=== PATIENT | male | born 1945 | race Two or more races ===

== ENCOUNTER 2020-02-08 08:35 | Outpatient (CLI) | payer OTHER | END 2020-02-08 08:40 | disposition home or self-care (01) | LOC: RAD 08:35 | PROVIDERS: ATTEND Specialist | DX: S32.000A Wedge compression fracture of unspecified lumbar vertebra, initial encounter for closed fracture (principal); J45.998 Other asthma ==

== ENCOUNTER → 2020-09-25 | Outpatient (CLI) | payer OTHER | END | disposition home or self-care (01) | LOC: TOM 09:53 | PROVIDERS: ATTEND Specialist | DX: Q33.8 Other congenital malformations of lung (principal) ==

== ENCOUNTER 2021-08-06 09:27 | Outpatient (CLI) | payer OTHER | END 2021-08-06 09:30 | disposition home or self-care (01) | LOC: LAB 09:27 | PROVIDERS: ATTEND Specialist | DX: E03.9 Hypothyroidism, unspecified (principal); N39.9 Disorder of urinary system, unspecified; D40.0 Neoplasm of uncertain behavior of prostate; E78.2 Mixed hyperlipidemia ==

== ENCOUNTER 2021-08-12 09:16 | Outpatient (CLI) | payer OTHER | END 2021-08-12 09:19 | disposition home or self-care (01) | LOC: TOM 09:16 | PROVIDERS: ATTEND Internal Medicine Pulmonary Disease | DX: J84.113 Idiopathic non-specific interstitial pneumonitis (principal) ==

== ENCOUNTER 2021-10-09 09:30 | Outpatient (CLI) | payer OTHER | END 2021-10-09 09:31 | disposition home or self-care (01) | LOC: LAB 09:30 | PROVIDERS: ATTEND Specialist | DX: E03.9 Hypothyroidism, unspecified (principal); E11.65 Type 2 diabetes mellitus with hyperglycemia; E78.2 Mixed hyperlipidemia; Z12.11 Encounter for screening for malignant neoplasm of colon; D64.9 Anemia, unspecified ==

== ENCOUNTER 2021-10-10 11:05 | Outpatient (CLI) | payer OTHER | END 2021-10-10 12:50 | disposition home or self-care (01) | LOC: LAB 11:05 | PROVIDERS: ATTEND Specialist | DX: E03.9 Hypothyroidism, unspecified (principal); E11.21 Type 2 diabetes mellitus with diabetic nephropathy; E78.2 Mixed hyperlipidemia; E11.65 Type 2 diabetes mellitus with hyperglycemia; Z12.11 Encounter for screening for malignant neoplasm of colon; D64.9 Anemia, unspecified ==

== ENCOUNTER 2021-10-12 07:22 | Outpatient (CLI) | payer OTHER | END 2021-10-12 07:29 | disposition home or self-care (01) | LOC: TOM 07:22 | PROVIDERS: ATTEND Internal Medicine Gastroenterology | DX: K30 Functional dyspepsia (principal); R10.32 Left lower quadrant pain ==

== ENCOUNTER 2022-07-06 09:22 | Outpatient (CLI) | payer OTHER | END 2022-07-06 09:23 | disposition home or self-care (01) | LOC: LAB 09:22 | PROVIDERS: ATTEND Radiology Diagnostic Radiology | DX: J47.9 Bronchiectasis, uncomplicated (principal) ==

== ENCOUNTER 2022-07-27 08:01 | Outpatient (CLI) | payer OTHER | END 2022-07-27 08:06 | disposition home or self-care (01) | LOC: TOM 08:01 | PROVIDERS: ATTEND Specialist | DX: J47.9 Bronchiectasis, uncomplicated (principal); J94.9 Pleural condition, unspecified | CPT/HCPCS: 71260; Q9965 ==

== ENCOUNTER 2022-08-18 07:58 | Outpatient (CLI) | payer OTHER | END 2022-08-18 12:21 | disposition home or self-care (01) | LOC: LAB 07:58 | PROVIDERS: ATTEND Internal Medicine Gastroenterology | DX: K30 Functional dyspepsia (principal); Z86.010 Personal history of colon polyps; K57.30 Diverticulosis of large intestine without perforation or abscess without bleeding; E11.21 Type 2 diabetes mellitus with diabetic nephropathy; E11.69 Type 2 diabetes mellitus with other specified complication; N39.9 Disorder of urinary system, unspecified; Z13.220 Encounter for screening for lipoid disorders; E03.8 Other specified hypothyroidism; D64.89 Other specified anemias ==

== ENCOUNTER 2022-11-15 08:24 | Outpatient (CLI) | payer OTHER | END 2022-11-15 08:52 | disposition home or self-care (01) | LOC: LAB 08:24 | PROVIDERS: ATTEND Specialist | DX: E03.8 Other specified hypothyroidism (principal); Z13.220 Encounter for screening for lipoid disorders; D64.89 Other specified anemias; E11.69 Type 2 diabetes mellitus with other specified complication; M00.89 Polyarthritis due to other bacteria; N39.9 Disorder of urinary system, unspecified; E11.21 Type 2 diabetes mellitus with diabetic nephropathy; Z12.5 Encounter for screening for malignant neoplasm of prostate; J84.10 Pulmonary fibrosis, unspecified ==

== ENCOUNTER 2023-02-28 07:58 | Outpatient (CLI) | payer OTHER | END 2023-02-28 08:00 | disposition home or self-care (01) | LOC: LAB 07:58 | PROVIDERS: ATTEND Specialist | DX: D64.89 Other specified anemias (principal); E03.8 Other specified hypothyroidism; Z13.220 Encounter for screening for lipoid disorders; E11.69 Type 2 diabetes mellitus with other specified complication; M00.80 Arthritis due to other bacteria, unspecified joint; N39.9 Disorder of urinary system, unspecified ==

== ENCOUNTER 2023-07-11 08:11 | Outpatient (CLI) | payer OTHER ==
[2023-07-11 08:57] LABS: URINE APPEARANCE Clear; URINE BILIRRUBIN Negative (NEGATIVE); URINE BLOOD NHT; URINE COLOR Yellow; URINE GLUCOSE Negative (NEGATIVE); URINE LEUKOCYTE Negative; URINE NITRATE Negative; URINE PROTEIN 30 (NEGATIVE)
[2023-07-11 09:02] LABS: URINE EPITHELIAL CELLS 1.6 uL (0.0-38.8); URINE WBC 2.1 uL (0.0-23.2)
[2023-07-11 09:18] LABS: HEMATOCRIT 37.9 % (39.0-48.0); HEMOGLOBIN 12.9 g/dL (13-16.00); MEAN CELL VOLUME 89.7 fL (80.0-100.00); MEAN CORPUSCULAR HEMOGLOBIN 30.6 pg (27.00-32.0); MEAN CORPUSCULAR HGB CONC 34.1 g/dl (32.0-36.0); PLATELET COUNT 209 K/uL (150-450); RED BLOOD COUNT 4.23 M/uL (4.00-6.00); RED CELL DISTRIBUTION WIDTH 13.2 % (11.5-14.5)
[2023-07-11 09:41] LABS: URINE BACTERIA 3.7 uL (0.0-1933)
[2023-07-11 09:56] LABS: ALBUMIN 4.1 gm/dL (3.4-5.0); BILIRUBIN TOTAL 0.74 mg/dL (0.3-1.2); CALCIUM 9.7 mg/dL (8.5-10.1); GFR 71.9; GLOBULINA 3.8 G/DL (2.4-3.5); POTASSIUM 4.46 mEq/L (3.5-5.1); PROSTATIC SPECIFIC ANTIGEN 3.72 NG/ML (0.010-4.00); T4 TOTAL 10.5 UG/DL (4.5-12.1); TOTAL PROTEIN 7.9 gm/dL (6.4-8.2)
[2023-07-11 10:45] LABS: TSH 3.97 uIU/mL (0.358-3.74)
== END 2023-07-11 08:21 | disposition home or self-care (01) ==
LOC: LAB 08:11
PROVIDERS: ATTEND Specialist
DX: K29.30 Chronic superficial gastritis without bleeding (principal); K57.30 Diverticulosis of large intestine without perforation or abscess without bleeding; R63.6 Underweight; R10.32 Left lower quadrant pain; K59.00 Constipation, unspecified

== ENCOUNTER 2023-07-11 08:48 | Outpatient (CLI) | payer OTHER | END 2023-07-11 08:53 | disposition home or self-care (01) | LOC: RAD 08:48 | PROVIDERS: ATTEND Internal Medicine Sports Medicine | DX: R63.4 Abnormal weight loss (principal); R04.2 Hemoptysis ==

== ENCOUNTER 2023-09-14 11:41 | Outpatient (CLI) | payer OTHER ==
[2023-09-14 12:24] LABS: PH,URINE 6.5 (5.0-8.0); URINE APPEARANCE Clear; URINE BILIRRUBIN Negative (NEGATIVE); URINE COLOR Dark Yellow; URINE GLUCOSE Negative (NEGATIVE); URINE LEUKOCYTE Trace; URINE NITRATE Negative; URINE PROTEIN 30 (NEGATIVE)
[2023-09-14 12:29] LABS: URINE BACTERIA 15.1 uL (0.0-1933); URINE EPITHELIAL CELLS 5.5 uL (0.0-38.8); URINE RBC 20.4 uL (0.0-20.8); URINE WBC 4.9 uL (0.0-23.2)
[2023-09-14 12:35] LABS: HEMATOCRIT 40.6 % (39.0-48.0); HEMOGLOBIN 13.7 g/dL (13-16.00); MEAN CELL VOLUME 89.5 fL (80.0-100.00); MEAN CORPUSCULAR HEMOGLOBIN 30.1 pg (27.00-32.0); MEAN CORPUSCULAR HGB CONC 33.7 g/dl (32.0-36.0); PLATELET COUNT 198 K/uL (150-450); RED BLOOD COUNT 4.54 M/uL (4.00-6.00); RED CELL DISTRIBUTION WIDTH 13.2 % (11.5-14.5)
[2023-09-14 12:39] LABS: URINE BLOOD TRACES
[2023-09-14 13:02] LABS: ALBUMIN 4.5 gm/dL (3.4-5.0); ALKALINE PHOSPHATASE 66 U/L (50-136); ALT/SGPT 13 U/L (12-78); ANION GAP 8 (10.0-20.0); AST/SGOT 13 U/L (15-37); BILIRUBIN TOTAL 0.84 mg/dL (0.3-1.2); BLOOD UREA NITROGEN 15 mg/dL (7-18); BUN CREA RATIO 14 (7.0-25.0); CARBON DIOXIDE 35 mEq/L (21-32); CHLORIDE 98 mmol/L (98-107); CHOL HDL RATIO 2.2 (0-5.0); CHOLESTEROL 224 mg/dL (0-200); CREATININE SERUM 1.07 mg/dL (0.70-1.30); GFR 66.49; GLOBULINA 4.2 G/DL (2.4-3.5); GLUCOSE FASTING 123 mg/dL (65-100); HDL 103 mg/dl (40-60); LDL 100 mg/dl (0-130); OSMOLALITY SERUM 276 MOSM/KG (275-295); POTASSIUM 4.19 mEq/L (3.5-5.1); SODIUM 137 mmol/L (136-145); T4 FREE 1.24 NG/ML (0.76-1.46); TOTAL PROTEIN 8.7 gm/dL (6.4-8.2); TRIGLYCERIDES 103 mg/dL (0-150); VLDL 20 (0-39)
[2023-09-14 13:03] LABS: C-REACTIVE PROTEIN < 0.29 MG/DL (0.00-0.29)
[2023-09-16 06:09] LABS: % FREE PSA 6.9 % (.); free psa 0.36 ng/mL; total psa 5.2 ng/mL (0.0-4.0)
== END 2023-09-14 11:42 | disposition home or self-care (01) ==
LOC: LAB 11:41
PROVIDERS: ATTEND Specialist
DX: Z12.5 Encounter for screening for malignant neoplasm of prostate (principal); E11.69 Type 2 diabetes mellitus with other specified complication; D64.89 Other specified anemias; E11.21 Type 2 diabetes mellitus with diabetic nephropathy; N39.9 Disorder of urinary system, unspecified; Z13.220 Encounter for screening for lipoid disorders

== ENCOUNTER → 2024-02-17 07:08 | Outpatient (CLI) | payer OTHER ==
[2024-02-17 07:44] LABS: HEMATOCRIT 38.9 % (39.0-48.0); HEMOGLOBIN 13.2 g/dL (13-16.00); MEAN CELL VOLUME 91.6 fL (80.0-100.00); MEAN CORPUSCULAR HEMOGLOBIN 31.1 pg (27.00-32.0); MEAN CORPUSCULAR HGB CONC 33.9 g/dl (32.0-36.0); PLATELET COUNT 250 K/uL (150-450); RED BLOOD COUNT 4.25 M/uL (4.00-6.00); RED CELL DISTRIBUTION WIDTH 13.1 % (11.5-14.5)
[2024-02-17 08:45] LABS: BILIRUBIN TOTAL 0.57 mg/dL (0.3-1.2); CALCIUM 9.5 mg/dL (8.5-10.1); CREATININE SERUM 0.86 mg/dL (0.70-1.30); GFR 85.35; GLOBULINA 3.9 G/DL (2.4-3.5); POTASSIUM 3.97 mEq/L (3.5-5.1); TOTAL PROTEIN 7.9 gm/dL (6.4-8.2); TSH 3.9 uIU/mL (0.358-3.74)
== END | disposition home or self-care (01) ==
LOC: LAB 07:08
PROVIDERS: ATTEND Internal Medicine Gastroenterology
DX: R63.4 Abnormal weight loss (principal); K57.30 Diverticulosis of large intestine without perforation or abscess without bleeding

== ENCOUNTER 2024-02-20 09:59 | Outpatient (CLI) | payer OTHER ==
[2024-02-20 11:06] LABS: CALCIUM 9.4 mg/dL (8.5-10.1); CREATININE SERUM 0.85 mg/dL (0.70-1.30); GFR 86.51; POTASSIUM 3.75 mEq/L (3.5-5.1)
== END 2024-02-20 10:03 | disposition home or self-care (01) ==
LOC: LAB 09:59
PROVIDERS: ATTEND Internal Medicine Gastroenterology
DX: K57.30 Diverticulosis of large intestine without perforation or abscess without bleeding (principal); R63.4 Abnormal weight loss; R04.2 Hemoptysis

== ENCOUNTER 2024-08-28 12:48 | Outpatient (CLI) | payer OTHER ==
[2024-08-28 13:20] LABS: HEMATOCRIT 34.7 % (39.0-48.0); HEMOGLOBIN 11.7 g/dL (13-16.00); MEAN CELL VOLUME 91.5 fL (80.0-100.00); MEAN CORPUSCULAR HEMOGLOBIN 30.8 pg (27.00-32.0); MEAN CORPUSCULAR HGB CONC 33.7 g/dl (32.0-36.0); PLATELET COUNT 247 K/uL (150-450); RED BLOOD COUNT 3.79 M/uL (4.00-6.00); RED CELL DISTRIBUTION WIDTH 13.2 % (11.5-14.5)
[2024-08-28 14:27] LABS: ALBUMIN 3.4 gm/dL (3.4-5.0); BILIRUBIN TOTAL 0.61 mg/dL (0.3-1.2); CALCIUM 9.2 mg/dL (8.5-10.1); CHOL HDL RATIO 2.7 (0-5.0); CREATININE SERUM 0.95 mg/dL (0.70-1.30); GFR 76.09; GLOBULINA 4.3 G/DL (2.4-3.5); POTASSIUM 4.52 mEq/L (3.5-5.1); TOTAL PROTEIN 7.7 gm/dL (6.4-8.2)
== END 2024-08-28 12:49 | disposition home or self-care (01) ==
LOC: RAD 12:48
PROVIDERS: ATTEND Internal Medicine
DX: D64.9 Anemia, unspecified (principal); R10.9 Unspecified abdominal pain; E78.5 Hyperlipidemia, unspecified; R80.9 Proteinuria, unspecified; E11.9 Type 2 diabetes mellitus without complications

== ENCOUNTER 2024-11-26 13:52 | Outpatient (CLI) | payer OTHER | END 2024-11-26 13:57 | disposition home or self-care (01) | LOC: TOM 13:52 | PROVIDERS: ATTEND Specialist | DX: J98.4 Other disorders of lung (principal) ==

== ENCOUNTER 2025-02-02 10:35 | Outpatient (CLI) | payer OTHER ==
[2025-02-02 11:45] LABS: BASO % 0.7 % (0.1-1.2); EOS # 0.16 (0.04-0.54); EOS % 1.8 % (0.7-7.0); HEMATOCRIT 36.2 % (40.1-51.0); HEMOGLOBIN 11.9 g/dL (13.7-17.5); MEAN CORPUSCULAR HEMOGLOBIN 29.2 pg (25.6-32.2); MONO # 0.73 (0.24-0.82); MONO % 8.2 % (4.7-12.5); NEUT # 5.44 (1.56-6.13); PLATELET COUNT 208 K/uL (163-369); RED BLOOD COUNT 4.08 M/uL (4.63-6.08); RED CELL DISTRIBUTION WIDTH 13.1 % (11.6-14.4)
[2025-02-02 12:01] LABS: INR 1.03; PARTIAL THROMBOPLASTIN TIME 25.6 SECONDS (22.0-34.0); PROTHROMBIN TIME 11.2 SECONDS (9.0-11.5)
[2025-02-02 12:20] LABS: ALBUMIN 4.1 gm/dL (3.4-5.0); BILIRUBIN TOTAL 0.83 mg/dL (0.3-1.2); CALCIUM 9.7 mg/dL (8.5-10.1); CHOL HDL RATIO 2.5 (0-5.0); CREATININE SERUM 1.02 mg/dL (0.70-1.30); FREE TRIODOTIRONINE 2.84 pg/ml (2.18-3.98); GFR 69.92; GLOBULINA 4.2 G/DL (2.4-3.5); POTASSIUM 4.45 mEq/L (3.5-5.1); T4 FREE 1.17 NG/ML (0.76-1.46); TOTAL PROTEIN 8.3 gm/dL (6.4-8.2); TSH 2.75 uIU/mL (0.358-3.74)
[2025-02-02 12:26] LABS: PROSTATIC SPECIFIC ANTIGEN 4.11 NG/ML (0.010-4.00)
[2025-02-05 13:08] LABS: kappa lambda r 2.05 (0.26-1.65); kappa light 42.6 mg/L (3.3-19.4); lambda light 20.8 mg/L (5.7-26.3)
== END 2025-02-02 10:40 | disposition home or self-care (01) ==
LOC: LAB 10:35
PROVIDERS: ATTEND Specialist
DX: E03.9 Hypothyroidism, unspecified (principal); N39.9 Disorder of urinary system, unspecified; D40.0 Neoplasm of uncertain behavior of prostate; E78.2 Mixed hyperlipidemia; E11.65 Type 2 diabetes mellitus with hyperglycemia; D64.9 Anemia, unspecified; D68.8 Other specified coagulation defects; D47.2 Monoclonal gammopathy; C90.00 Multiple myeloma not having achieved remission; N25.81 Secondary hyperparathyroidism of renal origin; N39.0 Urinary tract infection, site not specified; E55.9 Vitamin D deficiency, unspecified